=== PATIENT | male | born 1980 | race Caucasian/White ===

== ENCOUNTER 2024-08-23 07:41 | Emergency (ER) | payer MEDICAID, SELFPAY ==
--- NOTE | 2024-08-23 07:49 | EKG_ITS ---
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
[2024-08-23 07:59] VITALS: BP 129/86; PULSE 81; RESP 19; TEMP 36.6; O2SAT 99; BMI 41.0
--- NOTE | 2024-08-23 08:18 | XR_ITS ---
Examination: PA lateral chest 2 views Technique: Upright PA lateral chest 2 views Exam date and time: August 23, 2024 0834 hrs. Comparison September 20, 2022 Indications: Chest pain beginning 4 days ago. Findings: Normal heart size Lungs are clear. The osseous structures are intact Impression: No active disease
--- NOTE | 2024-08-23 08:19 | PD.EDRME ---
Rapid Medical Screening Exam RME Arrival date/time: 08/23/24 07:41 Chief Complaint: Chest Pain Time Seen by Provider: 08/23/24 07:55 Vital signs: Vital Signs Temperature 97.8 F 08/23/24 07:59 Pulse Rate 81 08/23/24 07:59 Respiratory Rate 19 08/23/24 07:59 Blood Pressure 129/86 H 08/23/24 07:59 Pulse Oximetry (%) 99 08/23/24 07:59 Oxygen Delivery Method Room Air 08/23/24 07:59 Vital signs reviewed by provider: Yes RME Narrative: 44-year-old male with past medical history of hypertension (on lisinopril and HCTZ) presents for evaluation of substernal chest pain with radiation down his right arm x 3 days. He reports elevated blood pressure readings at home with systolic in the 200s and diastolic in the 110s. Patient denies abdominal pain, nausea, vomiting, headache, visual changes.
[2024-08-23 08:50] LABS: Basophils % (Auto) 0 % (0-2.5); Eosinophils # (Auto) 0.2 Thou/mm3 (0.0-0.5); Eosinophils % (Auto) 3 % (0-10); Hematocrit 42.6 % (41.0-53.0); Hemoglobin 14.8 g/dL (13.5-16.0); Immature Granulocytes % (Auto) 1 % (0-0); Immature Granulocytes Auto 0.07 Thou/mm3 (0.00-0.00); Lymphocytes # (Auto) 1.5 Thou/mm3 (1.0-4.8); Lymphocytes % (Auto) 17 % (10-50); Mean Corpuscular HGB Conc 34.7 g/dl (31.0-37.0); Mean Corpuscular Hemoglobin 31.2 pg (25.0-35.0); Mean Corpuscular Volume 90 fL (80-100); Monocytes # (Auto) 0.7 Thou/mm3 (0.0-0.8); Monocytes % (Auto) 8 % (0-12); Neutrophils # (Auto) 6.2 Thou/mm3 (1.8-7.7); Neutrophils % (Auto) 72 % (37-80); Nucleated Red Blood Cell % 0 /100 WBC (0); Platelet Count 244 Thou/mm3 (140-440); RDW Standard Deviation 42.6 fL (35.1-43.9); Red Blood Count 4.75 Miln/mm3 (4.50-5.90); White Blood Count 8.6 Thou/mm3 (3.8-10.6)
[2024-08-23 09:06] LABS: Partial Thromboplastin Time 29.1 Seconds (22.0-36.0); Prothrombin Time 10.8 Seconds (9.0-12.2)
[2024-08-23 09:15] LABS: Alanine Aminotransferase 24 U/L (10-49); Albumin, Serum 4.8 gm/dL (3.5-5.0); Albumin/Globulin Ratio 1.6 (1.2-2.2); Alkaline Phosphatase 79 U/L (46-116); Anion Gap 6 (7-16); Aspartate Amino Transferase 21 U/L (0-34); BUN/Creatinine Ratio 27 Ratio (12-20); Bilirubin,Total 0.6 mg/dL (0.3-1.2); Blood Urea Nitrogen 24 mg/dL (9-23); Calcium 10.2 mg/dL (8.3-10.6); Calcium (Corrected) 10.2 mg/dL (8.5-10.1); Carbon Dioxide 28.9 mMol/L (20.0-31.0); Chloride 102 mMol/L (98-107); Creatinine (Component) 0.9 mg/dL (0.6-1.3); Estimated Creatinine Clearance 147.5 mL/min (>60); Glucose 110 mg/dL (74-106); Magnesium 2.2 mg/dL (1.6-2.6); Osmolality,Calculated 278 (275-295); Potassium 4.3 mMol/L (3.4-5.1); Sodium 137 mMol/L (136-145); Total Protein 7.8 gm/dL (5.7-8.2); Troponin I < 0.002 ng/mL (0.0-0.045); eGFR > 60 See Note
--- NOTE | 2024-08-23 09:29 | EDNOTE_ITS ---
ED Chest Pain RME/HPI General Chief Complaint: Chest Pain Stated Complaint: CHEST PAIN WITH HYPERTENSION Time Seen by Provider: 08/23/24 07:55 Arrival date/time: 08/23/24 07:41 Limitations: no limitations RME / HPI RME / HPI narrative: 44-year-old male with past medical history of hypertension (on lisinopril and HCTZ) presents for evaluation of substernal chest pain with radiation down his right arm x 3 days. He reports elevated blood pressure readings at home with systolic in the 200s and diastolic in the 110s. Patient denies abdominal pain, nausea, vomiting, headache, visual changes. DR. HEBERT MAIN ED EVALUATION: 44 year old male with history of hypertension presents to the ED for complaint of intermittent chest pressure beginning 3 days ago. Accompanied by elevated blood pressure readings at home, SBP 200's. Reports compliance with medications. Denies fevers, chills, headache, cough, shortness of breath, abdominal pain, n/v/d, or urinary symptoms. Related Data Home Medications ?Medication ?Instructions ?Recorded ?Confirmed hydrochlorothiazide 25 mg tablet 25 mg PO DAILY 11/11/21 12/10/21 ergocalciferol (vitamin D2) 1,250 1,250 mcg PO DAILY 12/08/21 12/10/21 mcg (50,000 unit) capsule (Vitamin D2) Previous Rx's ?Medication ?Instructions ?Recorded ciprofloxacin HCl 500 mg tablet 500 mg PO BID #14 tabs 12/10/21 (Cipro) hydrocodone 5 mg-acetaminophen 325 1 tab PO Q6H PRN pain #20 tabs 12/10/21 mg tablet lisinopril 10 mg tablet 10 mg PO QDAY #14 tabs 09/21/22 Allergies Allergy/AdvReac Type Severity Reaction Status Date / Time cashew nut Allergy Swelling Verified 08/23/24 07:42 of Lip/Tongue/Throat Review of Systems Review of Systems Systems Reviewed: All systems reviewed, normal except as documented Past Medical History Past Medical History CARDIAC: Positive Cardiac Disorders and Hypertension (TAKES MED) RESPIRATORY: Positive Pneumonia (HOSP AT 3 YRS OLD) GENITOURINARY: Positive Genitourinary Disorders and Kidney Stones (NO PROC) MUSCULOSKELETAL: Positive Musculoskeletal Disorders and Arthritis OTHER HISTORY: Positive Hospitalization (HOSP AT 3 YRS OLD [facility]EMON[facility]) and Chicken Pox Family History FAMILY HISTORY: Positive Family Psychiatric Problems (MOTHER (DEPRESSION)), Family Respiratory Disorders (MOTHER (ASTHMA)), Family Cardiac Disorders (FATHER (NM),BROTHER (HTN)), Family Gastrointestinal Problems (MOTHER (LIVER)) and Family Surgery (MOTHER) Surgical History SURGICAL: Positive Vasectomy; Negative Pacemaker Social History SMOKING STATUS: Current some day smoker ED Exam General Limitations: Present no limitations General appearance: Present alert and in no apparent distress Head Head exam: Present atraumatic, normocephalic and normal inspection Eye Eye exam: Present normal appearance, PERRL and EOMI ENT ENT exam: Present normal exam, normal oropharynx and mucous membranes moist Neck Neck exam: Present normal inspection, full ROM and trachea midline Chest Chest inspection: Present normal inspection and symmetric chest wall rise; Absent tenderness Respiratory Respiratory exam: Present normal lung sounds bilaterally Cardiovascular Cardiovascular exam: Present regular rate, normal rhythm and normal heart sounds Abdominal Exam Abdominal exam: Present soft and normal bowel sounds Extremities Exam Extremities exam: Present normal inspection and full ROM Back Exam Back exam: Present normal inspection and full ROM Neurological Exam Neurological exam: Present alert, oriented X3 and CN II-XII intact Psychiatric Psychiatric exam: Present normal affect and normal mood Skin Skin exam: Present warm, dry, intact and normal color Course Course Course Narrative: chest xray ordered to help determine etiology of chest pain. Quality Measures none Orders Category Date Time Status EKG (ED ONLY) *Do not use* NOW Care 08/23/24 07:49 Completed EKG (ED ONLY) *Do not use* NOW Care 08/23/24 08:18 Completed EKG (ED Only) Stat Exams 08/23/24 07:49 Draft EKG (ED Only) Stat Exams 08/23/24 08:18 Ordered XR chest 2V Stat Exams 08/23/24 08:18 Completed B-Type Natriuretic Peptide Stat Lab 08/23/24 08:30 Completed CBC Stat Lab 08/23/24 08:30 Completed Comprehensive Metabolic Panel Stat Lab 08/23/24 08:30 Completed Drug Screen,Urine Stat Lab 08/23/24 08:45 Completed Magnesium Stat Lab 08/23/24 08:30 Completed Partial Thromboplastin Time Stat Lab 08/23/24 08:30 Completed Prothrombin Time with INR Stat Lab 08/23/24 08:30 Completed Troponin I Stat Lab 08/23/24 08:30 Completed Reevaluation(s) Reevaluation #1: Patient remains clinically stable throughout the emergency department visit. We reviewed all the results, analysis, and treatment plans. Patient is amenable to discharge. Strict return precautions were outlined. Patient was discharged in stable condition. Time: 09:30 Vital Signs Vital signs: Vital Signs Temperature 97.8 F 08/23/24 07:59 Pulse Rate 81 08/23/24 07:59 Respiratory Rate 19 08/23/24 07:59 Blood Pressure 129/86 H 08/23/24 07:59 Pulse Oximetry (%) 99 08/23/24 07:59 Oxygen Delivery Method Room Air 08/23/24 07:59 Pulse ox is 99% on room air which is adequate. Chest Pain MDM Narrative MDM Narrative:: Maria Del Rosario Goodman am scribing for and in the presence of Dr. Hebert. Patient data External records reviewed:: [facility] previous records (I reviewed ED visit on 09/20/2022) Clinical information provided by:: patient Social determinants that could affect healthcare access:: none Patient has the following chronic illnesses:: Hypertension How is presenting disease/condition affected by chronic disease/condition?: exacerbated by Evaluation data The following diagnostics were reviewed and interpreted by me:: lab results, radiology exam(s) and EKG tracing(s) (Sinus rhythm, rate 82, no acute ST or T- wave changes, no STEMI. ) Lab and/or radiology exams considered but not ordered:: None Interpretation Summary: Ordering Physician: Gerson Harper PA-C Date of Service: 08/23/24 Procedure(s): XR chest 2V Accession Number(s): [id number] cc: Gerson Harper PA-C; Teodora Herbert MD; Aryan Jerome MD~ Examination: PA lateral chest 2 views Technique: Upright PA lateral chest 2 views Exam date and time: August 23, 2024 0834 hrs. Comparison September 20, 2022 Indications: Chest pain beginning 4 days ago. Findings: Normal heart size Lungs are clear. The osseous structures are intact Impression: No active disease Dictated By: Aryan Jerome MD Signed By: <Electronically signed by Aryan Jerome MD in OV> 08/23/24 1029 Medications / Prescriptions Medications or Prescriptions considered but not ordered:: None Medication administrations:: None Consultations Consultation(s) initiated? (list below): No Diagnosis Chest Pain Differential Diagnosis: stable angina, atypical chest pain, st elevation myocardial infarction, costochondritis, chest pain and biliary colic Most likely diagnosis given after review of the tests above:: Chest pain Admission Indicated Admission indicated?: not indicated Admission Request Was there a request for admission?: No Disposition Plan Disposition Plan: Discharge Discharge Attestation Discharge Attestation: The patient and all family members were given an opportunity to ask questions and understood the discharge instructions. Discharge instructions specifically effects, indications for sooner follow up or return to the emergency department, and the expected course of current diagnosis. Patient condition: Stable Discharge Plan Plan Patient Disposition: HOME (Self Care) Prescriptions/Referrals Prescriptions/Med Rec: No Action hydrochlorothiazide 25 mg tablet 25 mg PO DAILY ergocalciferol (vitamin D2) [Vitamin D2] 1,250 mcg (50,000 unit) capsule 1,250 mcg PO DAILY Patient Comments: TAKE 1 CAPSULE BY MOUTH ONCE A WEEK FOR 12 WEEKS hydrocodone-acetaminophen 5-325 mg tablet 1 tab PO Q6H MDD 4 PRN (Reason: pain) Qty: 20 0RF ciprofloxacin HCl [Cipro] 500 mg tablet 500 mg PO BID Qty: 14 0RF lisinopril 10 mg tablet 10 mg PO QDAY Qty: 14 0RF Referrals: Teodora Herbert MD [Primary Care Provider] - In 1 week Problem List Clinical Impression: Chest pain Patient/Caregiver Discharge Instructions Education Materials: ED Chest Pain, Uncertain Cause Print Language: Swedish Stand Alone Forms: Shanda Award Info., Patient Portal Info Letter
[2024-08-23 09:32] LABS: B-Type Natriuretic Peptide < 20 pg/mL (0-100)
[2024-08-23 09:39] LABS: Amphetamine/Methamp Scrn,U Negative (Negative); Barbiturate Screen,Urine Negative (Negative); Benzodiazepines Screen,Urine Negative (Negative); Benzoylecgonine Screen, Ur Negative (Negative); Fentanyl Screen,Urine Negative (Negative); Opiate Screen,Urine Negative (Negative); THC Screen,Urine Negative (Negative)
== END 2024-08-23 09:34 | disposition home or self-care (01) ==
PROVIDERS: Physician Assistant; Emergency Provider Emergency Medicine; PCP Obstetrics & Gynecology
DX: R07.9 Chest pain, unspecified (principal); I10 Essential (primary) hypertension; R94.31 Abnormal electrocardiogram [ECG] [EKG]; F17.290 Nicotine dependence, other tobacco product, uncomplicated
CPT/HCPCS: 36415; 71046; 80053; 80307; 81001; 83735; 83880; 84484; 85025; 85610; 85730; 93005; 99283

== ENCOUNTER 2025-05-19 08:29 | Emergency (ER) | payer MEDICAID, SELFPAY ==
[2025-05-19 08:30] VITALS: BMI 42.5
[2025-05-19 08:52] VITALS: BP 130/86; PULSE 83; RESP 18; TEMP 36.9; O2SAT 96
--- NOTE | 2025-05-19 09:00 | EKG_ITS ---
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
--- NOTE | 2025-05-19 09:00 | XR_ITS ---
Examination: PA lateral chest 2 views TECHNIQUE: Upright PA lateral chest 2 views Date and time: May 19, 2025 0914 hours INDICATION: Chest pain beginning 2 days ago. FINDINGS: Normal heart size. Lungs are clear. The osseous structures are intact. IMPRESSION: No active disease.
--- NOTE | 2025-05-19 09:02 | PD.EDSOB ---
ED SOB =RME/HPI General Chief Complaint: Nausea/Vomiting/Diarrhea Stated Complaint: NAUSEA, DIZZY, SOB, HIGH BP 2 DAYS AGO Time Seen by Provider: 05/19/25 08:34 Source: patient Arrival date/time: 05/19/25 08:29 45-year-old male with a history of hypertension presents to the emergency room with a chief complaint of dizziness, shortness of breath, nausea x 2 days Mode of arrival: ambulatory Limitations: no limitations Related Data Home Medications ?Medication ?Instructions ?Recorded ?Confirmed hydrochlorothiazide 25 mg tablet 25 mg PO DAILY 11/11/21 12/10/21 ergocalciferol (vitamin D2) 1,250 1,250 mcg PO DAILY 12/08/21 12/10/21 mcg (50,000 unit) capsule (Vitamin D2) Previous Rx's ?Medication ?Instructions ?Recorded ciprofloxacin HCl 500 mg tablet 500 mg PO BID #14 tabs 12/10/21 (Cipro) hydrocodone 5 mg-acetaminophen 325 1 tab PO Q6H PRN pain #20 tabs 12/10/21 mg tablet lisinopril 10 mg tablet 10 mg PO QDAY #14 tabs 09/21/22 ondansetron 4 mg disintegrating 4 mg PO Q8H PRN nausea and 05/19/25 tablet vomiting #14 tabs Allergies Allergy/AdvReac Type Severity Reaction Status Date / Time cashew nut Allergy Mild Swelling Verified 05/19/25 08:32 of Lip/Tongue/Throat Past Medical History Past Medical History NEUROLOGIC: Negative Neurological Disorders or Seizures CARDIAC: Positive Cardiac Disorders and Hypertension (TAKES MED); Negative Congestive Heart Failure, Edema, Cellulitis (HERPES PENIS 11/09 MD AWARE) or Varicose Veins RESPIRATORY: Positive Pneumonia (HOSP AT 3 YRS OLD); Negative Chronic Obstructive Pulmonary Disease (COPD), Tuberculosis, Pulmonary Embolism or Sleep Apnea GASTROINTESTINAL: Negative Gastrointestinal Disorders or Hepatitis GENITOURINARY: Positive Genitourinary Disorders and Kidney Stones (NO PROC); Negative Renal Disease MUSCULOSKELETAL: Positive Musculoskeletal Disorders and Arthritis ENDOCRINE: Negative Endocrine Disorders, Diabetes Mellitus Type 1 or Diabetes Mellitus Type 2 HEMATOLOGIC: Negative Blood Disorders OTHER HISTORY: Positive Hospitalization (HOSP AT 3 YRS OLD P[facility]EMON[facility]) and Chicken Pox; Negative Autoimmune Disease, Shingles, Falls, Blood Transfusions, Blood Transfusion Reaction, Anesthesia Reactions, Chemotherapy, Radiation Therapy, MRSA, Measles, Mumps or Cancer Family History FAMILY HISTORY: Positive Family Psychiatric Problems (MOTHER (DEPRESSION)), Family Respiratory Disorders (MOTHER (ASTHMA)), Family Cardiac Disorders (FATHER (DE),BROTHER (HTN)), Family Gastrointestinal Problems (MOTHER (LIVER)) and Family Surgery (MOTHER); Negative Family Cancer or Family Anesthesia Reaction Surgical History SURGICAL: Positive Vasectomy; Negative Pacemaker Social History SMOKING STATUS: Current every day smoker ED Exam General Limitations: Present no limitations General appearance: Present alert and in no apparent distress Head Head exam: Present atraumatic Eye Eye exam: Present normal appearance, PERRL and EOMI ENT ENT exam: Present normal exam, normal oropharynx and mucous membranes moist Neck Neck exam: Present normal inspection, full ROM and trachea midline Chest Chest inspection: Present normal inspection and symmetric chest wall rise Respiratory Respiratory exam: Present normal lung sounds bilaterally; Absent respiratory distress, wheezes, stridor, accessory muscle use or prolonged expiratory phase Cardiovascular Cardiovascular exam: Present regular rate, normal rhythm and normal heart sounds; Absent tachycardia Abdominal Exam Abdominal exam: Present soft and normal bowel sounds; Absent tenderness Extremities Exam Extremities exam: Present normal inspection and full ROM Back Exam Back exam: Present normal inspection and full ROM Neurological Exam Neurological exam: Present alert, oriented X3 and CN II-XII intact Psychiatric Psychiatric exam: Present normal affect and normal mood Skin Skin exam: Present warm, dry, intact and normal color Course Quality Measures none Orders Category Date Time Status EKG (ED ONLY) *Do not use* NOW Care 05/19/25 09:00 Completed EKG (ED Only) Stat Exams 05/19/25 09:00 Draft XR chest 2V Stat Exams 05/19/25 09:00 Completed B-Type Natriuretic Peptide Stat Lab 05/19/25 09:27 Completed CBC Stat Lab 05/19/25 09:27 Completed Comprehensive Metabolic Panel Stat Lab 05/19/25 09:27 Completed Drug Screen,Urine Stat Lab 05/19/25 09:30 Completed Magnesium Stat Lab 05/19/25 09:27 Completed Troponin I Stat Lab 05/19/25 09:27 Completed Urinalysis, C/S if Indicated Stat Lab 05/19/25 09:30 Completed Urine Culture Stat Lab 05/19/25 09:30 Received Ondansetron Odt [Zofran Odt] Med 05/19/25 09:00 Discontinued 4 mg PO X1 ONE Vital Signs Vital signs: Vital Signs Temperature 98.5 F 05/19/25 08:52 Pulse Rate 83 05/19/25 08:52 Respiratory Rate 18 05/19/25 08:52 Blood Pressure 130/86 H 05/19/25 08:52 Pulse Oximetry (%) 96 05/19/25 08:52 Oxygen Delivery Method Room Air 05/19/25 08:52 PROCEDURES: EKG Interpretation #1: Date of EK05/19/25 Rate: 88 Interpretation: Reviewed by me EKG Impression: Normal sinus rhythm Shortness of Breath / Dyspnea MDM Narrative MDM Narrative:: 45-year-old male with a history of hypertension presents to the emergency room with a chief complaint of dizziness, shortness of breath, nausea x 2 days Patient is hemodynamically stable and in no apparent distress Patient is nontachycardic no tachypnea O2 saturation is 96% on room air Physical examination shows clear bilateral lung sounds there is no wheezing stridor or any abnormal breath sounds. The patient has a normal neurological exam. He is a GCS of 15 alert and oriented x 3 pupils are PERRLA EOMs are intact. Patient has a normal steady gait. EKG was completed and shows normal sinus rhythm at [address] deviation. CBC CMP troponin BNP were all within normal limits Chest x-ray was negative for any pneumonic infiltrates. Patient was discharged and educated to follow-up with primary care provider in the next 24 to 48 hours and return to the emergency room for any evidence of worsening signs or symptoms Patient data External records reviewed:: [facility] previous records Clinical information provided by:: patient Social determinants that could affect healthcare access:: none Patient has the following chronic illnesses:: No chronic illness How is presenting disease/condition affected by chronic disease/condition?: no chronic disease Evaluation data The following diagnostics were reviewed and interpreted by me:: lab results and radiology exam(s) Lab and/or radiology exams considered but not ordered:: Labs and radiology exams considered and ordered Interpretation Summary: Chest [id number]: Normal heart size. Lungs are clear. The osseous structures are intact. IMPRESSION: No active disease. Medications / Prescriptions Medications or Prescriptions considered but not ordered:: Medication given Medication administrations:: Medication Administration History Discontinued Medications Ondansetron HCl (Ondansetron Odt 4 Mg Tabrap) 4 mg PO X1 ONE; Protocol Stop: 05/19/25 09:01 Last Admin: 05/19/25 09:47 Dose: 4 mg Documented By: CN Medication given Consultations Consultation(s) initiated? (list below): No Diagnosis Shortness of Breath Differential Diagnosis: community acquired pneumonia, asthma with exacerbation and other (Shortness of breath) Most likely diagnosis given after review of the tests above:: Shortness of breath Admission Indicated Admission indicated?: not indicated Admission Request Was there a request for admission?: No Disposition Plan Disposition Plan: Discharge Discharge Attestation Discharge Attestation: The patient and all family members were given an opportunity to ask questions and understood the discharge instructions. Discharge instructions specifically effects, indications for sooner follow up or return to the emergency department, and the expected course of current diagnosis. Patient condition: Stable Discharge Plan Plan Patient Disposition: HOME (Self Care) Discharge Disposition comment: Stable Prescriptions/Referrals Prescriptions/Med Rec: New ondansetron 4 mg tablet,disintegrating 4 mg PO Q8H PRN (Reason: nausea and vomiting) Qty: 14 0RF No Action hydrochlorothiazide 25 mg tablet 25 mg PO DAILY ergocalciferol (vitamin D2) [Vitamin D2] 1,250 mcg (50,000 unit) capsule 1,250 mcg PO DAILY Patient Comments: TAKE 1 CAPSULE BY MOUTH ONCE A WEEK FOR 12 WEEKS hydrocodone-acetaminophen 5-325 mg tablet 1 tab PO Q6H MDD 4 PRN (Reason: pain) Qty: 20 0RF ciprofloxacin HCl [Cipro] 500 mg tablet 500 mg PO BID Qty: 14 0RF lisinopril 10 mg tablet 10 mg PO QDAY Qty: 14 0RF Referrals: Teodora Herbert FNP-C [Primary Care Provider] - In 1 week Problem List Clinical Impression: Shortness of breath, Nausea & vomiting Patient/Caregiver Discharge Instructions Education Materials: ED Shortness of Breath (Dyspnea), ED Vomiting (Adult) Additional Instructions: Please follow-up with your primary care provider in the next 24 to 48 hours Your primary care provider will do some further management Your cardiac examination was within normal limits. Your chest x-ray was negative for any pneumonic infiltrates. For any evidence of worsening signs or symptoms please return to the emergency room immediately Print Language: Lithuanian Stand Alone Forms: Shanda Award Info., Patient Portal Info Letter DHRUV/YVON Supervising Physician DHRUV/YVON Supervising Physician: Dr. Aggarwal
[2025-05-19] MEDS: ONDANSETRON ODT 4 MG TABRAP PO (09:47)
[2025-05-19 09:59] LABS: Collection Type, Urine Clean Catch
[2025-05-19 10:08] LABS: Bilirubin,Urine Negative (Negative); Blood,Urine Negative (Negative); Clarity,Urine Clear (Clear/Hazy); Color,Urine Colorless (Lt Yel-Yel); Glucose, Urine Negative (Negative); Hyaline Casts,Urine < 1 /hpf (0-1); Ketones,Urine Negative (Negative); Leukocyte Esterase,Urine Positive (Negative); Nitrite,Urine Negative (Negative); PH,Urine 6.5 (5.0-7.0); Protein,Urine Negative (Neg - Trace); RBC,Urine 1 /hpf (0-3); Specific Gravity,Urine 1.014 (1.001-1.035); Squamous Epithelial Cell,Urine < 1 /hpf (0-5); Urobilinogen,Urine Negative mg/dL (0.0-1.0); WBC,Urine 13 /hpf (0-5)
[2025-05-19 10:18] LABS: Basophils # (Auto) 0.0 Thou/mm3 (0.0-0.2); Basophils % (Auto) 0 % (0-2.5); Eosinophils # (Auto) 0.2 Thou/mm3 (0.0-0.5); Eosinophils % (Auto) 2 % (0-10); Hematocrit 41.1 % (41.0-53.0); Hemoglobin 14.7 g/dL (13.5-16.0); Immature Granulocytes Auto 0.03 Thou/mm3 (0.00-0.00); Lymphocytes # (Auto) 1.3 Thou/mm3 (1.0-4.8); Lymphocytes % (Auto) 17 % (10-50); Mean Corpuscular HGB Conc 35.8 g/dl (31.0-37.0); Mean Corpuscular Hemoglobin 33.0 pg (25.0-35.0); Mean Corpuscular Volume 92 fL (80-100); Monocytes # (Auto) 0.5 Thou/mm3 (0.0-0.8); Monocytes % (Auto) 7 % (0-12); Neutrophils # (Auto) 5.4 Thou/mm3 (1.8-7.7); Neutrophils % (Auto) 73 % (37-80); Nucleated Red Blood Cell # 0.00 Thou/mm3 (0.00-0.00); Nucleated Red Blood Cell % 0 /100 WBC (0); Platelet Count 237 Thou/mm3 (140-440); RDW Standard Deviation 42.9 fL (35.1-43.9); Red Blood Count 4.46 Miln/mm3 (4.50-5.90); White Blood Count 7.4 Thou/mm3 (3.8-10.6)
[2025-05-19 10:19] LABS: B-Type Natriuretic Peptide < 20 pg/mL (0-100)
[2025-05-19 10:22] LABS: Alanine Aminotransferase 96 U/L (10-49); Albumin, Serum 4.5 gm/dL (3.5-5.0); Albumin/Globulin Ratio 1.7 (1.2-2.2); Alkaline Phosphatase 75 U/L (46-116); Anion Gap 11 (7-16); Aspartate Amino Transferase 58 U/L (0-34); BUN/Creatinine Ratio 14 Ratio (12-20); Bilirubin,Total 0.5 mg/dL (0.3-1.2); Blood Urea Nitrogen 13 mg/dL (9-23); Calcium 10.1 mg/dL (8.3-10.6); Calcium (Corrected) 10.1 mg/dL (8.5-10.1); Carbon Dioxide 24.2 mMol/L (20.0-31.0); Chloride 105 mMol/L (98-107); Creatinine (Component) 0.9 mg/dL (0.6-1.3); Estimated Creatinine Clearance 148.9 mL/min (>60); Globulin 2.7 gm/dL (2.3-3.5); Glucose 112 mg/dL (74-106); Magnesium 2.1 mg/dL (1.6-2.6); Osmolality,Calculated 280 (275-295); Potassium 4.0 mMol/L (3.4-5.1); Sodium 140 mMol/L (136-145); Total Protein 7.2 gm/dL (5.7-8.2); Troponin I < 0.002 ng/mL (0.0-0.045); eGFR > 60 See Note
[2025-05-19 10:36] LABS: Amphetamine/Methamp Scrn,U Negative (Negative); Barbiturate Screen,Urine Negative (Negative); Benzodiazepines Screen,Urine Negative (Negative); Benzoylecgonine Screen, Ur Negative (Negative); Fentanyl Screen,Urine Negative (Negative); Opiate Screen,Urine Negative (Negative); THC Screen,Urine Positive (Negative)
[2025-05-19 10:48] LABS: Culture Indicated,Urine Yes
[2025-05-19 12:58] VITALS: BP 140/88; PULSE 79; RESP 18; TEMP 36.6; O2SAT 99
== END 2025-05-19 12:59 | disposition home or self-care (01) ==
PROVIDERS: Nurse Practitioner Family; Emergency Provider Emergency Medicine; PCP Nurse Practitioner Family
DX: R06.02 Shortness of breath (principal); R11.2 Nausea with vomiting, unspecified; R42 Dizziness and giddiness; I10 Essential (primary) hypertension
CPT/HCPCS: 36415; 71046; 80053; 80307; 81001; 83735; 83880; 84484; 85025; 87086; 93005; 99284; Q0162